=== PATIENT | male | born 1940 | race Two or more races ===

== ENCOUNTER 2017-07-31 15:16 | Outpatient (CLI) | payer MEDICARE, MEDICAID ==
[2017-07-31 15:00] VITALS: BP 121/73
[2017-07-31] MEDS ORDERED: CLOPIDOGREL75 MG ORAL (15:58)
[2017-07-31] MEDS ORDERED: LEVOTHYROXINE75 MCG ORAL (15:58)
[2017-07-31] MEDS ORDERED: LOSARTAN POTAS100 MG ORAL (15:58)
[2017-07-31] MEDS ORDERED: CRESTOR20 MG ORAL (15:58)
[2017-07-31] MEDS ORDERED: GINKGO BILOBA E60 MG PO (15:58)
[2017-07-31] MEDS ORDERED: TERAZOSIN HCL1 MG ORAL (15:58)
[2017-07-31] MEDS ORDERED: EZETIMIBE10 MG PO (15:58)
[2017-07-31] MEDS ORDERED: PREVACID30 MG ORAL (15:58)
[2017-07-31] MEDS ORDERED: ELIQUIS5 MG PO (15:58)
[2017-07-31] MEDS ORDERED: CENTRUM SILVER1 EAC4 PO (15:58)
[2017-07-31] MEDS ORDERED: CARBIDOPA-LEVO1 EAC6 PO (15:58)
[2017-07-31] MEDS ORDERED: CYMBALTA60 MG ORAL (15:58)
[2017-07-31] MEDS ORDERED: TESTOSTERONE60 GM TD (15:58)
[2017-07-31] MEDS ORDERED: UROXATRAL10 MG ORAL (15:58)
[2017-07-31] MEDS ORDERED: GLUCOSAMINE1000 M1 PO (15:58)
[2017-07-31] MEDS ORDERED: PAPAVERINE IJ (15:58)
[2017-07-31] MEDS ORDERED: FISH OIL CAP1000 MG ORAL (15:58)
[2017-07-31] MEDS ORDERED: PROSCAR5 MG ORAL (15:58)
[2017-07-31] MEDS ORDERED: ASPIR 8181 MG ORAL (15:58)
[2017-07-31] MEDS ORDERED: DICYCLOMINE HCL10 MG PO (15:58)
[2017-07-31] MEDS ORDERED: ATENOLOL50 MG ORAL (15:58)
[2017-07-31] MEDS ORDERED: CIPROFLOXA500 MG/5 M PO (15:58)
--- NOTE | 2017-07-31 16:01 | GI Initial Consult Note ---
Yessica Bartholomewh Miquel NDominguezPDominguez 07/31/17 1601: History of Present Illness General Date patient seen: Jul 31, 2017 Time patient seen: 15:46 Referring physician: KATTY Reason for Consultation: BARRETTS ESOPHAGUS Present Illness HPI 76 year old pleasant male asked by Dr. 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 The past is currently on prevacid with multiple medical problems including CAD with angioplasty. Currently on Apixaban , Plavix, and ASA. The patient presents today for consultation of EGD in the hospital setting. 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 C/o of GERD, constipation. Home Meds Reported Medications Testosterone (Testosterone) Unknown Strength Gel..body maker, TD 07/31/17 Terazosin Hcl* (HYTRIN*) 1 Mg Capsule, 1 MG ORAL BEDTIME, #7 CAP 0 Refills 07/31/17 Rosuvastatin Calcium* (CRESTOR*) 20 Mg Tablet, 20 MG ORAL DAILY, TAB 07/31/17 Lansoprazole* (PREVACID*) 30 Mg Capsule.dr, 30 MG ORAL DAILY, CAP 07/31/17 Papaverine Hcl (PAPAVERINE HCL*) 30 Mg/1 Ml Vial, 30 MG IJ, VIAL 07/31/17 Losartan Potassium (LOSARTAN POTASSIUM) 100 Mg Tablet, 100 MG ORAL DAILY, TAB 07/31/17 Levothyroxine Sodium* (LEVOTHYROXINE SODIUM*) 75 Mcg Tablet, 75 MCG ORAL DAILY, TAB Take in the morning on an empty stomach, at least 30 minutes before food. 07/31/17 Glucosamine Sulfate 2KCL (GLUCOSAMINE) 1,000 Mg Tablet, 1000 MG PO, TAB 07/31/17 Ginkgo Biloba [place] Extract (GINKGO BILOBA EXTRACT) 60 Mg Capsule, 60 MG PO, CAP 07/31/17 Fish Oil (Fish Oil 1,000 mg Capsule) 1 Each Capsule, 1000 MG ORAL DAILY, CAP 07/31/17 Finasteride* (PROSCAR*) 5 Mg Tablet, 5 MG ORAL DAILY, #30 TAB 0 Refills 07/31/17 Ezetimibe (EZETIMIBE) 10 Mg Tablet, 10 MG PO, TAB 07/31/17 Duloxetine Hcl* (CYMBALTA*) 60 Mg Capsule.dr, 60 MG ORAL DAILY, CAP 07/31/17 Dicyclomine Hcl* (DICYCLOMINE HCL*) 10 Mg Capsule, 10 MG PO QID, CAP 07/31/17 Clopidogrel* (CLOPIDOGREL*) 75 Mg Tablet, 75 MG ORAL DAILY, TAB 07/31/17 Ciprofloxacin (Ciprofloxacin) 500 Mg/5 Ml Sindhu.mc.rec, 500 MG PO 07/31/17 Mu-Vits-Min Th/Lycopene/Lutein (CENTRUM SILVER TABLET) 1 Each Tablet, 1 EACH PO , TAB 07/31/17 Carbidopa/Levodopa (CARBIDOPA-LEVO ER 25-100 TAB) 1 Each Tablet.er, 1 EACH PO, TAB 07/31/17 Atenolol* (TENORMIN*) 50 Mg Tablet, 50 MG ORAL DAILY, TAB 07/31/17 Aspirin* (ASPIR 81*) 81 Mg Tablet.dr, 81 MG ORAL DAILY, TAB 07/31/17 Apixaban (ELIQUIS) 5 Mg Tablet, 5 MG PO, TAB 07/31/17 Alfuzosin 10Mg (Uroxatral) 10 Mg Tab.er.24h, 10 MG ORAL DAILY, #10 TAB 07/31/17 Allergies: Coded Allergies: No Known Allergies (Unverified , 08/01/17) Patient History History Provided By: Patient, Medical Record PMH Narrative HTN CAD with angioplasty 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 Past Surgical History: None Family History Narrative heart disease Social History: Denies: smoking, alcohol use, drug use, other Review of Systems All Other Systems: negative except mentioned in HPI Physical Exam T 97.8 BP 121/73 P 51 95 RA WT 214.9 Sp02 EP Interpretation: reviewed, normal General Appearance: well appearing, no apparent distress, alert, obese Head: normocephalic EENT: PERRL/EOMI, normal ENT inspection Neck: supple Respiratory: normal breath sounds, no respiratory distress Cardiovascular: normal rate Gastrointestinal: normal inspection, non tender, soft, normal bowel sounds, non -distended Rectal: deferred Genitourinary: deferred Musculoskeletal: normal inspection, back normal Neurologic: normal inspection, alert, oriented x3, responsive Psychiatric: normal inspection, judgement/insight normal, memory normal Skin: normal inspection, normal color, no rash, warm/dry, palpation normal, well hydrated Lymphatic: normal inspection, no adenopathy GI: Plan Problems: (1) CAD (coronary artery disease) (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 - NPO @ [place] day prior procedure explained. 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 Fall. Thank you for this patient referral. HARJIT FALL 08/02/17 1052: History of Present Illness Present Illness Home Meds Reported Medications Testosterone (Testosterone) Unknown Strength Gel..body maker, TD 07/31/17 Terazosin Hcl* (HYTRIN*) 1 Mg Capsule, 1 MG ORAL BEDTIME, #7 CAP 0 Refills 07/31/17 Rosuvastatin Calcium* (CRESTOR*) 20 Mg Tablet, 20 MG ORAL DAILY, TAB 07/31/17 Lansoprazole* (PREVACID*) 30 Mg Capsule.dr, 30 MG ORAL DAILY, CAP 07/31/17 Papaverine Hcl (PAPAVERINE HCL*) 30 Mg/1 Ml Vial, 30 MG IJ, VIAL 07/31/17 Losartan Potassium (LOSARTAN POTASSIUM) 100 Mg Tablet, 100 MG ORAL DAILY, TAB 07/31/17 Levothyroxine Sodium* (LEVOTHYROXINE SODIUM*) 75 Mcg Tablet, 75 MCG ORAL DAILY, TAB Take in the morning on an empty stomach, at least 30 minutes before food. 07/31/17 Glucosamine Sulfate 2KCL (GLUCOSAMINE) 1,000 Mg Tablet, 1000 MG PO, TAB 07/31/17 Ginkgo Biloba [place] Extract (GINKGO BILOBA EXTRACT) 60 Mg Capsule, 60 MG PO, CAP 07/31/17 Fish Oil (Fish Oil 1,000 mg Capsule) 1 Each Capsule, 1000 MG ORAL DAILY, CAP 07/31/17 Finasteride* (PROSCAR*) 5 Mg Tablet, 5 MG ORAL DAILY, #30 TAB 0 Refills 07/31/17 Ezetimibe (EZETIMIBE) 10 Mg Tablet, 10 MG PO, TAB 07/31/17 Duloxetine Hcl* (CYMBALTA*) 60 Mg Capsule.dr, 60 MG ORAL DAILY, CAP 07/31/17 Dicyclomine Hcl* (DICYCLOMINE HCL*) 10 Mg Capsule, 10 MG PO QID, CAP 07/31/17 Clopidogrel* (CLOPIDOGREL*) 75 Mg Tablet, 75 MG ORAL DAILY, TAB 07/31/17 Ciprofloxacin (Ciprofloxacin) 500 Mg/5 Ml Sindhu.mc.rec, 500 MG PO 07/31/17 Mu-Vits-Min Th/Lycopene/Lutein (CENTRUM SILVER TABLET) 1 Each Tablet, 1 EACH PO , TAB 07/31/17 Carbidopa/Levodopa (CARBIDOPA-LEVO ER 25-100 TAB) 1 Each Tablet.er, 1 EACH PO, TAB 07/31/17 Atenolol* (TENORMIN*) 50 Mg Tablet, 50 MG ORAL DAILY, TAB 07/31/17 Aspirin* (ASPIR 81*) 81 Mg Tablet.dr, 81 MG ORAL DAILY, TAB 07/31/17 Apixaban (ELIQUIS) 5 Mg Tablet, 5 MG PO, TAB 07/31/17 Alfuzosin 10Mg (Uroxatral) 10 Mg Tab.er.24h, 10 MG ORAL DAILY, #10 TAB 07/31/17 Allergies: Coded Allergies: No Known Allergies (Unverified , 08/01/17) GI: Plan Plan The patient was seen and examined at bedside and all new and available data was reviewed in the patients chart. I agree with the above findings, impression and plan. (Patient seen earlier today. Signature stamp does not reflect patient encounter time.). - MD [place] Jim Anh Miquel Tyson Jul 31, 2017 16:01 HARJIT FALL Aug 02, 2017 10:52
== END 2017-07-31 15:49 | disposition home or self-care (01) ==
LOC: EDBD → PAN 15:16
DX: K22.70 Barrett's esophagus without dysplasia (principal); I25.10 Atherosclerotic heart disease of native coronary artery without angina pectoris; I11.9 Hypertensive heart disease without heart failure; Z79.82 Long term (current) use of aspirin; Z79.02 Long term (current) use of antithrombotics/antiplatelets; K21.9 Gastro-esophageal reflux disease without esophagitis; K59.00 Constipation, unspecified
CPT/HCPCS: 99201

== ENCOUNTER 2017-08-07 08:39 | Day surgery (SDC) | payer MEDICARE, MEDICAID ==
[2017-08-07] VITALS (10 sets, daily range): BP systolic 115–141; BP diastolic 60–78
[~2017-08-07] VITALS: Ht 157.5 cm; Wt 95.3 kg
--- NOTE | 2017-08-07 07:06 | Anethesia Preoperative Eval ---
Anesthesia Pre-op PMH/ROS General Date of Evaluation: Aug 07, 2017 Time of Evaluation: 07:03 Anesthesiologist: regine ASA Score: ASA 3 Mallampati Score Class I : Soft palate, uvula, fauces, pillars visible Class II: Soft palate, uvula, fauces visible Class III: Soft palate, base of uvula visible Class IV: Only hard plate visible Mallampati Classification: Class II Surgeon: jasvir Diagnosis: gerd Surgical Procedure: egd Anesthesia History: none Family History: no anesthesia problems Allergies: Coded Allergies: No Known Allergies (Unverified , 08/01/17) Medications: see eMAR Past Medical History Cardiovascular: Reports: HTN, CAD, other - angioplasty Gastrointestinal/Genitourinary: Reports: other - castañeda's esophagus, Endocrine: Reports: hypothyroidism Anesthesia Pre-op Phys. Exam Physician Exam Constitutional: NAD Neurologic: CN 2-12 intact Cardiovascular: RRR Respiratory: CTA Gastrointestinal: S/NT/ND Airway Exam Mallampati Score: Class II MO: full Neck: supple TMD: 2fb ROM: limited Anesthesia Pre-op A/P Labs Labs Test 08/07/17 10:10 White Blood Count 4.5 K/UL (4.8-10.8) Red Blood Count 4.76 M/UL (4.70-6.10) Hemoglobin 13.1 G/DL (14.2-18.0) Hematocrit 40.1 % (42.0-52.0) Mean Corpuscular Volume 84 FL (80-99) Mean Corpuscular Hemoglobin 27.5 PG (27.0-31.0) Mean Corpuscular Hemoglobin Concent 32.6 G/DL (32.0-36.0) Red Cell Distribution Width 12.9 % (11.6-14.8) Platelet Count 118 K/UL (150-450) Mean Platelet Volume 9.9 FL (6.5-10.1) Neutrophils (%) (Auto) 63.0 % (45.0-75.0) Lymphocytes (%) (Auto) 25.2 % (20.0-45.0) Monocytes (%) (Auto) 9.8 % (1.0-10.0) Eosinophils (%) (Auto) 0.9 % (0.0-3.0) Basophils (%) (Auto) 1.1 % (0.0-2.0) Prothrombin Time 10.5 SEC (9.30-11.50) Prothromb Time International Ratio 1.0 (0.9-1.1) Activated Partial Thromboplast Time 29 SEC (23-33) Sodium Level 139 MMOL/L (136-145) Potassium Level 4.4 MMOL/L (3.5-5.1) Chloride Level 106 MMOL/L (98-107) Carbon Dioxide Level 25 MMOL/L (21-32) Anion Gap 9 mmol/L (5-15) Blood Urea Nitrogen 23 mg/dL (7-18) Creatinine 0.8 MG/DL (0.55-1.30) Estimat Glomerular Filtration Rate mL/min (>60) Glucose Level 106 MG/DL (74-106) Calcium Level 8.4 MG/DL (8.5-10.1) Risk Assessment & Plan Assessment: asa3 Plan: mac Status Change Before Surgery: No Pre-Antibiotics Drug: YARITZA Tobar Aug 07, 2017 07:06
[~2017-08-07 08:39] MED LIST: ASPIR 8181 MG ORAL; ATENOLOL50 MG ORAL; Atropine Inj 1mg/10ml Syr IV PRN; CARBIDOPA-LEVO1 EAC6 PO; CENTRUM SILVER1 EAC4 PO; CIPROFLOXA500 MG/5 M PO; CLOPIDOGREL75 MG ORAL; CRESTOR20 MG ORAL; CYMBALTA60 MG ORAL; DICYCLOMINE HCL10 MG PO; DiphenhydrAMINE 50mg/ml Inj IVP PRN; ELIQUIS5 MG PO; EZETIMIBE10 MG PO; FISH OIL CAP1000 MG ORAL; GINKGO BILOBA E60 MG PO; GLUCOSAMINE1000 M1 PO; LEVOTHYROXINE75 MCG ORAL; LOSARTAN POTAS100 MG ORAL; Midazolam 2mg/2ml Inj IVP PRN; PAPAVERINE IJ; PREVACID30 MG ORAL; PROSCAR5 MG ORAL; TERAZOSIN HCL1 MG ORAL; TESTOSTERONE60 GM TD; UROXATRAL10 MG ORAL; fentaNYL 100 mcg/2 mL IV PRN
--- NOTE | 2017-08-07 10:29 | Pre-Procedure Note/Attestation ---
Pre-Procedure Note/Attestation Complete Prior to Procedure Planned Procedure: not applicable Procedure Narrative: egd Indications for Procedure Pre-Operative Diagnosis: GERD Attestation I attest that I discussed the nature of the procedure; its benefits; risks and complications; and alternatives (and the risks and benefits of such alternatives ), prior to the procedure, with the patient (or the patient's legal technology sales representative). I attest that, if there was a reasonable possibility of needing a blood transfusion, the patient (or the patient's legal technology sales representative) was given the [facility] standardized written summary, pursuant to the [place] Blood Safety Act ([place] Health and Safety Code # 1645, as amended). I attest that I re-evaluated the patient just prior to the surgery and that there has been no change in the patient's H&P, except as documented below: HARJIT FALL Aug 07, 2017 10:29
--- NOTE | 2017-08-07 10:31 | Short Stay Surgery H&P ---
History of Present Illness History of Present Illness Chief Complaint see recent office consult note HPI Batsheva Abbott is a 76 year old male who was admitted on for GERD Patient History Allergies: Coded Allergies: No Known Allergies (Unverified , 08/01/17) PAST MEDICAL HISTORY: Past Surgeries: Social History: Medication History Scheduled Alfuzosin 10Mg (Uroxatral), 10 MG ORAL DAILY, (Reported) Aspirin* (Aspir 81*), 81 MG ORAL DAILY, (Reported) Atenolol* (Tenormin*), 50 MG ORAL DAILY, (Reported) Clopidogrel* (Clopidogrel*), 75 MG ORAL DAILY, (Reported) Dicyclomine Hcl* (Dicyclomine Hcl*), 10 MG PO QID, (Reported) Duloxetine Hcl* (Cymbalta*), 60 MG ORAL DAILY, (Reported) Finasteride* (Proscar*), 5 MG ORAL DAILY, (Reported) Fish Oil (Fish Oil 1,000 mg Capsule), 1,000 MG ORAL DAILY, (Reported) Lansoprazole* (Prevacid*), 30 MG ORAL DAILY, (Reported) Levothyroxine Sodium* (Levothyroxine Sodium*), 75 MCG ORAL DAILY, (Reported) Losartan Potassium (Losartan Potassium), 100 MG ORAL DAILY, (Reported) Rosuvastatin Calcium* (Crestor*), 20 MG ORAL DAILY, (Reported) Terazosin Hcl* (Hytrin*), 1 MG ORAL BEDTIME, (Reported) Miscellaneous Medications Apixaban (Eliquis), 5 MG PO, (Reported) Carbidopa/Levodopa (Carbidopa-Levo Er 25-100 Tab), 1 EACH PO, (Reported) Ezetimibe (Ezetimibe), 10 MG PO, (Reported) Ginkgo Biloba [place] Extract (Ginkgo Biloba Extract), 60 MG PO, (Reported) Glucosamine Sulfate 2KCL (Glucosamine), 1,000 MG PO, (Reported) Mu-Vits-Min Th/Lycopene/Lutein (Centrum Silver Tablet), 1 EACH PO, (Reported) Papaverine Hcl (Papaverine Hcl*), 30 MG IJ, (Reported) Testosterone (Testosterone), Unknown Dose TD, (Reported) Discontinued Medications Ciprofloxacin (Ciprofloxacin), 500 MG PO, (Reported) Discontinued Reason: Pt stopped taking med Physical Exam Vital Signs Last Vital Signs Date Time Temp Pulse Resp B/P (MAP) Pulse Ox O2 Delivery O2 Flow Rate FiO2 08/07/17 10:00 97.9 58 20 122/68 97 Room Air Labs Laboratory Tests Test 08/07/17 10:10 White Blood Count Pending Red Blood Count Pending Hemoglobin Pending Hematocrit Pending Mean Corpuscular Volume Pending Mean Corpuscular Hemoglobin Pending Mean Corpuscular Hemoglobin Concent Pending Red Cell Distribution Width Pending Platelet Count Pending Mean Platelet Volume Pending Neutrophils (%) (Auto) Pending Lymphocytes (%) (Auto) Pending Monocytes (%) (Auto) Pending Eosinophils (%) (Auto) Pending Basophils (%) (Auto) Pending Prothrombin Time Pending Prothromb Time International Ratio Pending Activated Partial Thromboplast Time Pending Sodium Level Pending Potassium Level Pending Chloride Level Pending Carbon Dioxide Level Pending Blood Urea Nitrogen Pending Creatinine Pending Estimat Glomerular Filtration Rate Pending Glucose Level Pending Calcium Level Pending Plan Attestation Are the patient's medical conditions optimized for surgery? HARJIT FALL Aug 07, 2017 10:31
[2017-08-07 10:34] LABS: BASOPHILS % (AUTO) 1.1 % (0.0-2.0); EOSINOPHILS % (AUTO) 0.9 % (0.0-3.0); HEMATOCRIT 40.1 % (42.0-52.0); HEMOGLOBIN 13.1 G/DL (14.2-18.0); LYMPHOCYTES % (AUTO) 25.2 % (20.0-45.0); MEAN CORPUSCULAR VOLUME 84 FL (80-99); MONOCYTES % (AUTO) 9.8 % (1.0-10.0); PLATELET COUNT 118 K/UL (150-450); RED BLOOD COUNT 4.76 M/UL (4.70-6.10); RED CELL DISTRIBUTION WIDTH 12.9 % (11.6-14.8); WHITE BLOOD COUNT 4.5 K/UL (4.8-10.8)
--- NOTE | 2017-08-07 10:58 | Endoscopy Procedure Note ---
Endoscopy Procedure Note General Indication for Procedure: baretts Procedures Performed: EGD Operative Findings/Diagnosis: same Specimen: yes Pt Tolerated Procedure Well: Yes Estimated Blood Loss: none Anesthesia Anesthesiologist: rajni Anesthesia: MAC Inserted Devices Implant(s) used?: No GI Core Measures 50 yrs or older w/o bx or poly: Not Applicable 10yrs. F/U not recommended: Not Applicable HARJIT FALL Aug 07, 2017 10:58
[2017-08-07] MEDS ORDERED: Lidocaine 1% MPF 10mg/ml 5ml ONE (11:00)
[2017-08-07] MEDS ORDERED: Propofol 200mg/20ml IV ONE (11:00)
[2017-08-07 11:04] LABS: ANION GAP 9 mmol/L (5-15); BLOOD UREA NITROGEN 23 mg/dL (7-18); CALCIUM 8.4 MG/DL (8.5-10.1); CARBON DIOXIDE 25 MMOL/L (21-32); CHLORIDE 106 MMOL/L (98-107); CREATININE 0.8 MG/DL (0.55-1.30); POTASSIUM 4.4 MMOL/L (3.5-5.1); SODIUM 139 MMOL/L (136-145)
--- NOTE | 2017-08-07 13:43 | 48 Hour Post Anesthesia Eval ---
Post Anesthesia Evaluation Procedure: egd Date of Evaluation: Aug 07, 2017 Time of Evaluation: 11:22 Blood Pressure Systolic: 122 0: 60 Pulse Rate: 59 Respiratory Rate: 18 Temperature (Fahrenheit): 97.3 O2 Sat by Pulse Oximetry: 100 Airway: patent Nausea: No Vomiting: No Pain Intensity: 0 Hydration Status: adequate Cardiopulmonary Status: stable Mental Status/LOC: patient returned to baseline Post-Anesthesia Complications: none Follow-up care needed: N/A YARITZA HERNANDES Aug 07, 2017 13:43
--- NOTE | 2017-08-07 13:43 | Immediate Post-Op Evaluation ---
Immediate Post-Op Evalulation Immediate Post-Op Evalulation Procedure: egd Date of Evaluation: Aug 07, 2017 Time of Evaluation: 11:20 IV Fluids: 400ml 0.9ns Blood Products: none Estimated Blood Loss: negligible Blood Pressure Systolic: 122 Blood Pressure Diastolic: 60 Pulse Rate: 57 Respiratory Rate: 18 O2 Sat by Pulse Oximetry: 100 Temperature (Fahrenheit): 97.3 Pain Score (1-10): 0 Nausea: No Vomiting: No Complications none Patient Status: awake, reacts, patent Hydration Status: adequate Drug: YARITZA Tobar Aug 07, 2017 13:43
--- NOTE | 2017-08-07 15:15 | Procedure Note ---
DATE OF PROCEDURE: 08/07/2017 SURGEON: Darwin Rocha M.D. ANESTHESIA: Per Dr. Melissa. REFERRING PHYSICIAN: Otilia Mitchell M.D. PROCEDURE: Upper endoscopy with biopsy INSTRUMENT: Olympus adult flexible endoscope. 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 The procedure, risks, benefits, and possible consequences, including hemorrhage, aspiration, perforation and infection, and alternative treatments, were explained to the patient/legal guardian by Dr. Darwin Rocha and the patient/legal guardian understood and accepted these risks. PROCEDURE IN DETAIL: After informed consent was obtained and the patient was adequately sedated, Olympus upper endoscope was advanced from mouth into the second portion of duodenum and retroflexion was performed in the stomach. The patient had evidence of irregularity at the Z-line. Z-line was measured to be roughly about 37 cm from the incisors. No significant large segment 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 was seen. Using a narrow band imaging studies, we re-examined this GE junction area and we biopsied the most prominent area, which was suspicious for Will's. Then, the scope was advanced to the stomach. There was evidence of diffuse gastritis. No ulceration. No mass was seen. Retroflexion was performed in the stomach. The patient had evidence of small hiatal hernia. SUMMARY OF FINDINGS: 1. Irregular Z-line, status post biopsy to rule out Will's. 2. Hiatal hernia. 3. Diffuse gastritis. RECOMMENDATIONS: Follow up biopsy results and treat accordingly. I want to thank, Dr. Mitchell, for this kind referral. Darwin Rocha M.D. DR: TROY JOB#: [id number] CC: Otilia Mitchell M.D
--- NOTE | 2017-08-08 08:31 | Cardiology Report ---
APPROVED REPORT EKG Measurement Heart [id number] Sinus bradycardia Right bundle branch block Left anterior fascicular block Bifascicular block Minimal voltage criteria for LVH, may be normal variant Possible Inferior infarct, age undetermined Abnormal ECG
== END 2017-08-07 12:50 | disposition home or self-care (01) ==
LOC: GAS 08:39 → EDBD 11:45 → GAS 12:50
DX: K29.50 Unspecified chronic gastritis without bleeding (principal); K44.9 Diaphragmatic hernia without obstruction or gangrene; Z79.82 Long term (current) use of aspirin; K21.9 Gastro-esophageal reflux disease without esophagitis; I11.9 Hypertensive heart disease without heart failure; E03.9 Hypothyroidism, unspecified; R00.1 Bradycardia, unspecified; I45.2 Bifascicular block
CPT/HCPCS: 36415; 43239; 80048; 85025; 85610; 85730; 93005; J2704; 94003; 94150